=== PATIENT | female | born 1945 | race Two or more races ===

== ENCOUNTER 2022-09-02 16:42 | Emergency (ER) | payer OTHER ==
[~2022-09-02] VITALS: Ht 160 cm; Wt 61.2 kg
[2022-09-02] MEDS ORDERED: SIMVASTATIN80 MG (17:06)
[2022-09-02] MEDS ORDERED: KAPSPARGO SPRI100 MG PO (17:06)
== END 2022-09-03 01:32 | disposition home or self-care (01) ==
LOC: ER 16:42
DX: M54.31 Sciatica, right side (principal); R07.9 Chest pain, unspecified; Z20.822 Contact with and (suspected) exposure to COVID-19

== ENCOUNTER → 2022-09-03 | Emergency (ER) | payer OTHER ==
[~2022-09-03] VITALS: Ht 152.4 cm; Wt 63.5 kg
[~2022-09-03] MED LIST: KAPSPARGO SPRI100 MG PO; SIMVASTATIN80 MG
== END | disposition expired ==
LOC: ER 11:57
DX: I46.9 Cardiac arrest, cause unspecified (principal); I95.9 Hypotension, unspecified; I10 Essential (primary) hypertension; E78.00 Pure hypercholesterolemia, unspecified